=== PATIENT | male | born 1990 | race Caucasian/White ===

== ENCOUNTER 2019-11-16 10:46 | Emergency (ER) | payer OTHER ==
[~2019-11-16] VITALS: Ht 167.6 cm; Wt 74.8 kg
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
--- NOTE | 2019-11-16 11:09 | NUR ---
Patient discharged to home in stable condition. Written and verbal after care instructions given. Patient verbalizes understanding of instruction.
[2019-11-16 11:10] VITALS: BP 128/75
== END 2019-11-16 11:10 ==
LOC: ER 10:54
DX: S09.8XXA Other specified injuries of head, initial encounter (principal); Y04.8XXA Assault by other bodily force, initial encounter; Y93.89 Activity, other specified; Y92.89 Other specified places as the place of occurrence of the external cause; Y99.8 Other external cause status